=== PATIENT | female | born 1955 | race Caucasian/White ===

== ENCOUNTER 2021-02-20 00:10 | Observation (INO) | payer MEDICARE ==
[2021-02-20] MEDS ORDERED: Morphine 4 MG/ML VIAL ONE (00:31)
[2021-02-20] MEDS ORDERED: Ondansetron PF 4 MG/2 ML Vial ONE (00:31)
[2021-02-20 01:07] LABS: #Eosinphils 0.1 10x3/uL (0.0-0.5); #Monocytes 0.6 10x3/uL (0.0-1.1); %Basophils 0.4 % (0.0-2.0); %Eosinophils 1.4 % (0.0-6.0); %Monocytes 8.8 % (0.0-10.0); %Neutrophils 55.1 % (40.0-75.0); Hemoglobin 12.6 g/dL (12.0-15.5); Mean Corpuscular HGB CONC 32.2 g/dL (32.0-36.0); Mean Corpuscular Hemoglobin 26.6 pg (27.0-33.0); Mean Corpuscular Volume 82.7 fl (81.6-98.3); Mean Platelet Volume 9.7 fl (7.4-10.4); Platelet Count 276 10x3/uL (150-450); RBC Distribution Width 14.5 % (11.5-14.5); Red Blood Cell (RBC) Count 4.73 10x6/uL (3.90-5.03); White Blood Cell (WBC) Count 7.2 10x3/uL (3.5-10.5)
[2021-02-20 01:23] LABS: ALT (SGPT) 21 U/L (8-55); AST (SGOT) 14 U/L (5-34); Albumin 4.6 g/dL (3.4-4.8); Alkaline Phosphatase 92 U/L (40-110); Anion Gap 12 mmol/L (10-20); BUN (Urea Nitrogen) 14 mg/dL (9.8-20.1); Bilirubin, Total 0.5 mg/dL (0.2-1.2); CK (CPK) 92 U/L (29-168); Calc. Creatinine Clearance 0 mL/min (70-130); Calcium 9.7 mg/dL (7.8-10.44); Carbon Dioxide 27 mmol/L (23-31); Chloride 105 mmol/L (98-107); Glucose 115 mg/dL (80-115); Potassium 3.8 mmol/L (3.5-5.1); Protein, Total 7.6 g/dL (5.8-8.1); Sodium 140 mmol/L (136-145)
[2021-02-20] MEDS ORDERED: Diazepam 10 MG/2 ML SYRINGE ONE (01:47)
[2021-02-20] MEDS ORDERED: Ondansetron ODT 4 MG TAB PO PRN (02:36)
[2021-02-20] MEDS ORDERED: hydrALAZINE 20 MG/ML VIAL ONE (02:41)
[2021-02-20] MEDS ORDERED: Morphine 2 MG/ML VIAL SLOW IVP PRN (03:22)
[2021-02-20 04:35] VITALS: BMI 25.0
[2021-02-20] MEDS: Acetaminophen 325 MG TAB PO SCH ×3 (04:45→15:50)
[2021-02-20] MEDS: NS 0.9% w/ 20 MEQ KCL 1,000 ML/1,000 ML BAG IV SCH ×2 (04:45→13:52)
[2021-02-20] MEDS: Ketorolac Tromethamine 30 MG/ML VIAL IVP SCH ×2 (05:41→12:38)
[2021-02-20 08:24] LABS: Anion Gap 12 mmol/L (10-20); BUN (Urea Nitrogen) 9 mg/dL (9.8-20.1); Calc. Creatinine Clearance 81 mL/min (70-130); Carbon Dioxide 21 mmol/L (23-31); Chloride 110 mmol/L (98-107); Sodium 139 mmol/L (136-145)
[2021-02-20 08:25] LABS: Calcium 8.5 mg/dL (7.8-10.44); Glucose 100 mg/dL (80-115); Magnesium 1.8 mg/dL (1.6-2.6)
[2021-02-20] MEDS: Ondansetron PF 4 MG/2 ML Vial IVP PRN ×2 (08:25→13:51)
[2021-02-20] MEDS ORDERED: Enoxaparin Sodium 40 MG/0.4 ML SYRINGE SC SCH (09:00)
[2021-02-20] MEDS ORDERED: Gabapentin 100 MG CAP PO SCH (11:15)
[2021-02-20 12:27] VITALS: BP 153/75; TEMP 98.5
[2021-02-20 21:03] LABS: SARS-CoV-2 PCR by NAA Not Detected (NotDetected)
[2021-02-21] MEDS ORDERED: Gabapentin 100 MG CAP PO SCH (09:00)
== END 2021-02-20 16:36 | disposition home or self-care (01) ==
LOC: CSHERS 00:10 → CSHTELE 04:26
PROVIDERS: ADMIT Family Medicine; ATTEND Family Medicine
DX: M54.40 Lumbago with sciatica, unspecified side (principal); Z20.822 Contact with and (suspected) exposure to COVID-19
CPT/HCPCS: 72148; 74176; 80048; 80053; 82550; 83735; 85025; 96372; 96374; 96375 ×2; 96376; 97139; 99284; G0378 ×2; J2270; U0003; U0005; 36415; 87635; J0360; J1650; J1885; J2405; J3360; J3480